=== PATIENT | female | born 1990 | race Caucasian/White ===

== ENCOUNTER 2017-06-02 16:08 | Observation (INO) ==
[2017-06-02] MEDS ORDERED: CEFTRIAXONE 1 G in NS 100 ML IV SCH (16:15)
[2017-06-02] MEDS ORDERED: ONDANSETRON 4 MG/2 ML INJECTION IVP PRN (16:25)
[2017-06-02] MEDS ORDERED: LR 1,000 ML IV SCH (16:45)
[2017-06-02 16:54] VITALS: BMI 28.9
[2017-06-02] MEDS: LR 1,000 ML IV SCH ×2 (18:54→23:52)
[2017-06-02] MEDS ORDERED: ACETAMINOPHEN 325 MG TABLET PO PRN (18:55)
[2017-06-03] MEDS ORDERED: SALINE FLUSH 10ml SYRINGE IV PRN (05:30)
[2017-06-03] MEDS: LR 1,000 ML IV SCH ×2 (06:07→12:03)
[2017-06-03 07:31] VITALS: BP 110/66; PULSE 103; RESP 16; TEMP 99.1; O2SAT 98
[2017-06-03] MEDS ORDERED: POLYETHYL GLYCOL 3350 17gm PACKET PO SCH (09:00)
--- NOTE | 2017-06-03 13:40 | Discharge Summary ---
Discharge Information Date of admission: 06/02/17 16:25 Anticipated date of discharge: 06/03/17 Attending Physician: Orquidea Han MD Primary care physician: Orquidea Han MD - Discharge Diagnosis (1) Enteroviral vesicular pharyngitis Status: Acute Discharge Diagnosis: Pt improving. Strep culture still pending so will still plan to cover w/ amoxicillin, but likely appearance of tonsils is all related to her rhino/ enteroviral infection. Fever much improved. (2) Dehydration during Status: Resolved Discharge Diagnosis: Resolved w/ IVF bolus & aggressive IV rehydration. Pt is tolerating PO well now & plan dismissal today. (3) Tachycardia Status: Acute Discharge Diagnosis: Much improved w/ antipyretics & rehydration. Was both maternal & . (4) Ketonuria Status: Resolved (5) Nausea & vomiting Status: Resolved (6) Intrauterine , incidental Status: Acute (7) Hypokalemia due to loss of potassium Status: Acute - Procedures Procedures: None - Laboratory Labs: 06/03/17 05:50 06/03/17 05:50 - Microbiology Microbiology 06/03/17 06:27 Throat Group A Streptococcus Culture - Preliminary Culture Initiated - Results Pending 06/02/17 15:39 Urine, Voided (Cc/notcc) Urine Culture - Preliminary Culture Initiated - Results Pending History of Present Illness HPI: 06/03/17 13:48 Pt presented yesterday w/ fever up to 102.5, N/V, GUTIERREZ, weakness & severe body aches. Today she has also developed a ST & white patches on her tonsils. She is feeling much better today & would like to go home. Hospital Course This is a general summary of the patient's hospital course. For more details refer to the complete medical record. On admission pt was given Rocephin 1gm IV & 1L bolus LR followed by aggressive LR rehydration. This AM her potassium was down just slightly so oral replacement was given. She has not had vomiting since admission but did take one dose of zofran this AM. Lab otherwise as below, pos for entero/rhinovirus. Strep culture & TORCH testing still pending. Laboratory Tests 06/02/17 06/02/17 06/03/17 18:23 18:23 05:50 WBC 9.7 RBC 4.21 Hgb 11.7 L Hct 35.3 L MCV 83.8 MCH 27.8 MCHC 33.1 RDW Std Deviation 40.9 Plt Count 250 MPV 10.7 Immature Gran % (Auto) Not performed Neut % (Auto) Not performed Lymph % (Auto) Not performed [place] % (Auto) Not performed Eos % (Auto) Not performed Baso % (Auto) Not performed Neut # Not performed Lymph # Not performed [place] # Not performed Eos # Not performed Baso # Not performed Abs Immat Gran (auto) Not performed Neutrophils % (Manual) 68.0 H Band Neutrophils % 15.0 H Lymphocytes % (Manual) 8.0 L Monocytes % (Manual) 7.0 Metamyelocytes % 2.0 H Neutrophils # (Manual) 6.6 Band Neutrophils # 1.5 Lymphocytes # (Manual) 0.8 L Monocytes # (Manual) 0.7 Metamyelocytes # 0.2 RBC Morph Comment Normal Turbidity < 20 Sodium 137 Potassium 3.5 L Chloride 106 Carbon Dioxide 17 L Anion Gap 14 BUN 5.0 L Creatinine 0.5 L GFR Calculation 149 BUN/Creatinine Ratio 10 Glucose 83 Calculated Osmolality 260 L Calcium 9.3 Total Bilirubin 0.60 Icterus Index < 2 AST 13 L ALT 26 Alkaline Phosphatase 75 Total Protein 7.0 Albumin 3.9 Globulin 3.1 Albumin/Globulin Ratio 1.3 Specimen Hemolysis < 15 Ur Collection Type Urine, clean catch Urine Color Yellow Urine Clarity Clear Urine pH 6.0 Ur Specific [place] <=1.005 L Urine Protein Negative Urine Glucose (UA) Negative Urine Ketones 2+ A Urine Occult Blood 1+ A Urine Nitrate Negative Urine Bilirubin Negative Urine Urobilinogen 0.2 Ur Leukocyte Esterase Negative Urine RBC None seen Urine WBC None seen Ur Squamous Epith Cells 0-5 Urine Bacteria None seen Ur Culture Indicated? Cult not indicated Urinalysis Comment Adenovirus (PCR) B.parapertussis DNA PCR C. pneumoniae DNA (PCR) Coronavirus OC43 (PCR) Coronavirus HKU1 (PCR) Coronavirus 229E (PCR) Coronavirus NL63 (PCR) Human Metapneumovirus Influenza Type A (PCR) Influenza Type B (PCR) M. pneumoniae (PCR) Parainfluenza 1 (PCR) Parainfluenza 2 (PCR) Parainfluenza 3 (PCR) Parainfluenza 4 (PCR) RSV (PCR) Entero/Rhino (PCR) Group A Strep Screen 06/03/17 06/03/17 06/03/17 05:50 05:50 06:27 WBC 9.8 RBC 3.96 L Hgb 11.0 L Hct 33.2 L MCV 83.8 MCH 27.8 MCHC 33.1 RDW Std Deviation 41.5 Plt Count 241 MPV 10.6 Immature Gran % (Auto) 0.6 H Neut % (Auto) 78.3 H Lymph % (Auto) 10.8 L [place] % (Auto) 10.1 H Eos % (Auto) 0.0 Baso % (Auto) 0.2 Neut # 7.6 Lymph # 1.1 [place] # 1.0 H Eos # 0.0 Baso # 0.0 Abs Immat Gran (auto) 0.06 H Neutrophils % (Manual) Band Neutrophils % Lymphocytes % (Manual) Monocytes % (Manual) Metamyelocytes % Neutrophils # (Manual) Band Neutrophils # Lymphocytes # (Manual) Monocytes # (Manual) Metamyelocytes # RBC Morph Comment Turbidity < 20 Sodium 137 Potassium 3.4 L Chloride 107 Carbon Dioxide 20 L Anion Gap 10 BUN 3.0 L Creatinine 0.4 L GFR Calculation 193 BUN/Creatinine Ratio 8 Glucose 98 Calculated Osmolality 261 Calcium 8.9 Total Bilirubin Icterus Index < 2 AST ALT Alkaline Phosphatase Total Protein Albumin Globulin Albumin/Globulin Ratio Specimen Hemolysis < 15 Ur Collection Type Urine Color Urine Clarity Urine pH Ur Specific [place] Urine Protein Urine Glucose (UA) Urine Ketones Urine Occult Blood Urine Nitrate Urine Bilirubin Urine Urobilinogen Ur Leukocyte Esterase Urine RBC Urine WBC Ur Squamous Epith Cells Urine Bacteria Ur Culture Indicated? Urinalysis Comment Adenovirus (PCR) B.parapertussis DNA PCR C. pneumoniae DNA (PCR) Coronavirus OC43 (PCR) Coronavirus HKU1 (PCR) Coronavirus 229E (PCR) Coronavirus NL63 (PCR) Human Metapneumovirus Influenza Type A (PCR) Influenza Type B (PCR) M. pneumoniae (PCR) Parainfluenza 1 (PCR) Parainfluenza 2 (PCR) Parainfluenza 3 (PCR) Parainfluenza 4 (PCR) RSV (PCR) Entero/Rhino (PCR) Group A Strep Screen Negative 06/03/17 06/03/17 09:14 11:40 WBC RBC Hgb Hct MCV MCH MCHC RDW Std Deviation Plt Count MPV Immature Gran % (Auto) Neut % (Auto) Lymph % (Auto) [place] % (Auto) Eos % (Auto) Baso % (Auto) Neut # Lymph # [place] # Eos # Baso # Abs Immat Gran (auto) Neutrophils % (Manual) Band Neutrophils % Lymphocytes % (Manual) Monocytes % (Manual) Metamyelocytes % Neutrophils # (Manual) Band Neutrophils # Lymphocytes # (Manual) Monocytes # (Manual) Metamyelocytes # RBC Morph Comment Turbidity Sodium Potassium Chloride Carbon Dioxide Anion Gap BUN Creatinine GFR Calculation BUN/Creatinine Ratio Glucose Calculated Osmolality Calcium Total Bilirubin Icterus Index AST ALT Alkaline Phosphatase Total Protein Albumin Globulin Albumin/Globulin Ratio Specimen Hemolysis Ur Collection Type Urine, clean catch Urine Color Yellow Urine Clarity Clear Urine pH 7.5 Ur Specific [place] 1.010 L Urine Protein Negative Urine Glucose (UA) Trace A Urine Ketones Negative Urine Occult Blood Trace-intact Urine Nitrate Negative Urine Bilirubin Negative Urine Urobilinogen 0.2 Ur Leukocyte Esterase Negative Urine RBC Urine WBC Ur Squamous Epith Cells Urine Bacteria Ur Culture Indicated? Urinalysis Comment Microscopic not ind. Adenovirus (PCR) Negative B.parapertussis DNA PCR Negative C. pneumoniae DNA (PCR) Negative Coronavirus OC43 (PCR) Negative Coronavirus HKU1 (PCR) Negative Coronavirus 229E (PCR) Negative Coronavirus NL63 (PCR) Negative Human Metapneumovirus Negative Influenza Type A (PCR) Negative Influenza Type B (PCR) Negative M. pneumoniae (PCR) Negative Parainfluenza 1 (PCR) Negative Parainfluenza 2 (PCR) Negative Parainfluenza 3 (PCR) Negative Parainfluenza 4 (PCR) Negative RSV (PCR) Negative Entero/Rhino (PCR) Detected A Group A Strep Screen Pt is currently stable at the time of discharge & much improved from admission yesterday. Will plan to continue her on home abx in form of amox to cover for strep until culture negative & rx for zofran prn. Pt to f/u in office next week at 4:30 for OB check & hosp f/u. Time spent with patient: discharge greater than 30 minutes Discharge Plan - Med Rec/Dispo Referrals/Follow Up: Orquidea Han MD [Family Provider] - Zane Instructions: Nausea and Vomiting in (GEN), Hand, Foot, and Mouth Disease (DC) Additional Instructions: If you should have any questions or problems related to the please contact Dr. Han. Prescriptions: New Acetaminophen [Tylenol] 325 - 650 mg PO Q5H PRN tablet PRN Reason: Discomfort Amoxicillin 1 cap PO Q8H 7 Days #21 cap Ondansetron HCl [Zofran] 4 mg PO Q6HPRN #30 tab Continue Pnv95/Ferrous Fumarate/FA [ Tablet] 1 tab PO DAILY #0 tab Discontinued Hydrocodone/Acetaminophen ([place] 5-325 Tablet) 1 - 2 tab PO Q4H PRN #30 tab PRN Reason: PAIN Ibuprofen 800 mg PO Q8HMC 14 Days #42 tab Iron Polysaccharide Complex [Ferrex 150] 150 mg PO BID 30 Days #60 cap Discharge Instructions/Outpatient Orders: Final Provider Discharge Instructions Location: Determined By Patient - Disposition 01 Discharged Home, Self-Care
== END 2017-06-03 15:30 | disposition home or self-care (01) ==
LOC: MED
PROVIDERS: ADMIT Family Medicine; ATTEND Family Medicine

== ENCOUNTER 2017-11-22 10:23 | Inpatient (IN) ==
[2017-11-22] MEDS ORDERED: CEFAZOLIN PREMIX (MC ONLY) 2 GM/50 ML BAG IV ONE (10:36)
[2017-11-22] MEDS ORDERED: CITRIC ACID/SODIUM CITRATE 30ml PO ONE (10:36)
[2017-11-22] MEDS ORDERED: FAMOTIDINE PB 20 MG/50 ML BAG IV ONE (10:36)
[2017-11-22] MEDS: LR 1,000 ML IV SCH ×2 (11:13→11:45)
[2017-11-22 11:23] VITALS: BMI 31.9
--- NOTE | 2017-11-22 12:04 | Anesthesia Preoperative Report ---
Anesthesia Epidural/Spinal Rec - Date and Time Date: 11/22/17 Procedure: Plan: Spinal - Vital Signs Vital Signs: Temperature 98.5 F 11/22/17 11:04 Pulse Rate 78 11/22/17 11:04 Respiratory Rate 16 11/22/17 11:04 Blood Pressure 107/67 11/22/17 11:04 Pulse Oximetry 98 11/22/17 11:04 /Para: P:1 - Medictaions & Allergies Inpatient Medications: Current Medications Lactated Ringer's (Lactated Ringers) 1,000 mls @ 999 mls/hr IV .Q1H1M ELLIOTT Last Admin: 11/22/17 11:45 Dose: 999 mls/hr Allergies/Adverse Reactions: Allergies Allergy/AdvReac Type Severity Reaction Status Date / Time No Known Allergies Allergy Verified 11/22/17 11:29 - Home Medications Home Medications: Home Medications Medication Instructions Recorded Confirmed Type Pnv95/Ferrous Fumarate/FA 1 tab PO DAILY #0 tab 01/29/16 11/22/17 History [ Tablet] - Medical History Respiratory: DENIES: Asthma, Bronchitis, Chronic Obstructive Pulmonary Disease (COPD), Dyspnea, Orthopnea, Pulmonary Embolism, Pneumonia, Upper Respiratory Infection, Pulmonary Edema, Sleep Apnea, Tuberculosis, Other Cardiovascular: DENIES: Abnormal EKG, Angina, Arrhythmia, Congestive Heart Failure, Coronary Artery Disease, Heart Murmur, Hypertension, Hypotension, High Cholesterol, Myocardial Infarction, Rheumatic Fever, Valvular Heart Disease, Other Gastrointestional: Reports: Ulcer (hx of) DENIES: Obstructive Bowel, Hepatitis, Cirrhosis, Nausea or Vomiting Present, Gastroesophageal Reflux Disease, Gastrointestinal Bleeding, Hiatal Hernia, Morbid Obesity, Other Neuro/Musculoskeletal: Denies: HX.MS.OSAR, Back Problems, Cerebrovascular Accident, Depression, Headaches, Loss of Consciousness, Muscle Weakness, Neuromuscular Disorder, Paralysis, Paresthesia, Syncope, Seizures, Other Renal/Endocrine: DENIES: Diabetes Mellitus Type 1, Diabetes Mellitus Type 2, Renal Failure, Dialysis, Thyroid Disease, Weight Loss, Weight Gain, Other Other History: Reports: Now DENIES: Anesthesia Reactions, Blood Transfusions, Chemotherapy, Cancer, Hemophilia, Malignant Hyperthermia, Sickle Cell Disease, Other - Surgical History Reproductive Surgery/Treatment: Reports: Section Anesthesia Reactions: None Hx Family Anesthesia Reaction: No History of Motion Sickness: No - Social History Smoking Status: Never smoker Second Hand Exposure: No Substance Use Type: does not use Alcohol Intake Frequency: does not drink Hx Chewing Tobacco Use: No - Pertinent Findings Lab Data: CBC and BMP 11/22/17 10:56 - Physical Exam Respiratory Exam: lungs clear, bilateral breath sounds equal Cardiovascular Exam: regular rate and rhythm, no murmur - Airway Assessment Mallampati Score: I TMD: 3 Fingerbreadths Neck Extension: good Overall Assessment: no airway concerns - ASA ASA Score: 2 - Discussion Discussion: Discussed risks/options/alternatives of anesthesia and questions answered. Patient consents. Nursing pain assessment noted. Anesthesia Discussion: spouse, family member Attestation Statement: Prior to the delivery of any anesthetic medication, I examined the patient, developed the plan, obtained the patient's consent and discussed the risk and benefits of the procedure with the patient/guardian.
[2017-11-22] MEDS ORDERED: MORPHINE SULFATE PF 5mg/10ml INJ (Duramorph) ONE (12:15)
[2017-11-22] MEDS ORDERED: FentaNYL 100 MCG/2 ML INJECTION ONE (12:15)
[2017-11-22] MEDS ORDERED: ONDANSETRON 4 MG/2 ML INJECTION ONE (12:16)
[2017-11-22] MEDS ORDERED: EPHEDRINE 50mg/ml INJECTION ONE (12:29)
[2017-11-22] MEDS ORDERED: OXYTOCIN BOLUS BAG 30 UNIT/500 ML ML IV SCH (13:00)
[2017-11-22] MEDS ORDERED: ONDANSETRON 4 MG/2 ML INJECTION IVP PRN (13:21)
[2017-11-22] MEDS ORDERED: NALOXONE 2 MG/2 ML INJECTION PFS IVP PRN (13:21)
[2017-11-22] MEDS ORDERED: NALBUPHINE 10 MG/ML INJECTION IVP PRN (13:21)
--- NOTE | 2017-11-22 13:52 | Operative Note ---
Operative Note - Date of Operation Date of Operation: 11/22/17 - General Estimated or Known Gestational Age (weeks): 39 Estimated or Known Gestational Age (days): 2 - Preoperative Diagnosis Previous Section - Postoperative Diagnosis previous section - Procedure Repeat, Low-transverse - Surgeon Surgeon: Orquidea Han MD - Medical Library Assistant OB Medical Library Assistant: Rick Soto MD - Anesthesia Anesthesia Provider: Gigi Fink CRNA Anesthesia Type: Spinal - Estimated Blood Loss Estimated Blood Loss:: 700 - Findings Findings: viable male, clear fluids, normal adenexa, uterine fibroids, OT Comments: nuchal cord x1 reduced - APGARS : 8/9 - [place] Weight Weight (grams): 3604 - Name Name: Misael Borjas - Indications Indications: Previous LTCS - Description of Procedure Description of Procedure: See dictation.
[2017-11-22] MEDS ORDERED: ACETAMINOPHEN 500 MG TABLET PO PRN (13:55)
[2017-11-22] MEDS ORDERED: DiphenhydrAMINE 25 MG CAPSULE PO PRN (13:55)
[2017-11-22] MEDS ORDERED: HYDROCORTISONE 2.5% CREAM 30gm RECTALLY PRN (13:55)
[2017-11-22] MEDS ORDERED: CALCIUM CARBONATE Chewable 500mg TABLET PO PRN (13:55)
[2017-11-22] MEDS ORDERED: SALINE FLUSH 10ml SYRINGE IV PRN (13:55)
[2017-11-22] MEDS ORDERED: OXYTOCIN DRIP 30 UNIT/500 ML ML IV SCH (14:00)
[2017-11-22] MEDS ORDERED: D5LR 1,000 ML IV SCH (14:00)
[2017-11-22] MEDS: IBUPROFEN 800 MG TABLET PO SCH ×3 (14:38→22:51)
[2017-11-22] MEDS: HYDROCODONE/APAP 5mg/325mg TABLET PO PRN ×2 (14:39→20:03)
--- NOTE | 2017-11-22 15:34 | Anesthesia Postoperative Note ---
- Date and Time Date: 11/22/17 Time: 15:33 - Status Patient Participated in Evaluation: Patient Participated in Person Vital Signs: Temperature 98.5 F 11/22/17 11:04 Pulse Rate 78 11/22/17 11:04 Respiratory Rate 16 11/22/17 11:04 Blood Pressure 107/67 11/22/17 11:04 Pulse Oximetry 98 11/22/17 11:04 Respiratory Function: Airway Patent, Regular Respirations Mental Status: Alert and Oriented Pain Intensity: 2 Hydration: Taking PO Fluids, IV Infusing Complications During Recover: None Apparent - Follow-Up Instructions Instructions: Per Surgeon
[2017-11-22] MEDS: SIMETHICONE 80 MG CHEWABLE TABLET PO SCH ×2 (20:03→22:52)
--- NOTE | 2017-11-22 20:59 | Operative Note ---
DATE OF SURGERY 11/22/2017 PREOPERATIVE DIAGNOSES 1. 39 week 2 day estimated gestational age intrauterine . 2. Previous low transverse section. POSTOPERATIVE DIAGNOSES 1. 39 week 2 day estimated gestational age intrauterine -delivered. 2. Previous low transverse section. SURGEON Orquidea Han MD H[employer] SUPERVISOR Rick Soto, DO ANESTHESIA Spinal. COMPLICATIONS None. EBL 700 mL. IV FLUIDS 1000 mL LR with 20 units Pitocin. URINE OUTPUT 250 mL of clear urine at end of procedure. INDICATIONS 27-year-old G2, P1 at 39 weeks 2 days estimated gestational age here for scheduled repeat section. FINDINGS Male infant in cephalic presentation with loose nuchal cord x 1 - reduced. Apgars 8/9/9. Weight 3604 g (7 pounds 15.1 oz). Normal tubes and ovaries. Uterus normal with the exception of two anterior fibroids noted. NARRATIVE OF PROCEDURE After verbal and written informed consent was given the patient was taken to the operating room where spinal anesthesia was placed and found to be adequate. She was then prepped and draped in the usual fashion in the dorsal supine position with left lateral tilt. A Pfannenstiel skin incision was then made with scalpel and carried through to the underlying layer of fascia. The fascia was then incised in the midline and the incision was extended laterally using Pringle scissors. The superior aspect of the fascial incision was then grasped with Piyush clamps x 2, elevated and the underlying rectus muscles were dissected off bluntly and sharply. Attention was turned to the inferior aspect of this incision which in a similar fashion was grasped, tented up with Piyush clamps x 2, and the rectus muscles were dissected off bluntly and sharply. The rectus muscles were then in the midline and the peritoneum was identified, tent up and entered bluntly and sharply with Metzenbaum scissors in a superior direction. Manual traction was then used to extend the peritoneal incision the rest of the way with good visualization of the bladder. A bladder blade was then inserted and the vesicouterine peritoneum was identified, grasped with Haitian pickups and entered sharply with Metzenbaum scissors. The incision was extended laterally and a bladder flap was created digitally. The bladder blade was reinserted and the lower uterine segment was incised in a transverse fashion with a scalpel. The uterine incision was extended laterally using manual traction. The bladder blade was removed and the infant's head was delivered atraumatically. A nuchal cord x 1 was noted and reduced. The shoulders were then also delivered atraumatically and the cord was doubly clamped and cut. The was taken to the warmer for further stimulation and resuscitation by nursing staff and respiratory therapy. The uterus was then exteriorized and the placenta was removed by uterine massage. The uterus was then cleared of all clots and debris. The uterine incision was repaired using 0-Monocryl in a running locking fashion. Excellent hemostasis was achieved and the uterus was returned to the abdomen. The gutters were cleared of all clots and debris. The peritoneum was closed using 2-0 Vicryl. Fascia was then reapproximated using 0-Vicryl in a running fashion. Shlomo's fascia was then closed using 3-0 plain gut. The skin was closed using wide elizabeth. The patient tolerated the procedure well. Sponge, lap and needle counts were correct x 2. Ancef 2 g were given prior to the procedure. The patient and the infant are currently in the recovery room in stable condition. DEA
[2017-11-23] MEDS: HYDROCODONE/APAP 5mg/325mg TABLET PO PRN ×4 (01:14→17:53)
[2017-11-23] MEDS: IBUPROFEN 800 MG TABLET PO SCH ×2 (08:15→16:00)
[2017-11-23] MEDS: DOCUSATE CALCIUM 240 MG CAPSULE PO SCH (08:16)
[2017-11-23] MEDS: SIMETHICONE 80 MG CHEWABLE TABLET PO SCH ×2 (08:55→20:00)
[2017-11-23] MEDS: SIMETHICONE 80 MG CHEWABLE TABLET PO PRN (14:45)
[2017-11-24] MEDS: IBUPROFEN 800 MG TABLET PO SCH ×2 (00:09→09:25)
[2017-11-24] MEDS: HYDROCODONE/APAP 5mg/325mg TABLET PO PRN ×4 (00:09→13:36)
[2017-11-24] MEDS: SIMETHICONE 80 MG CHEWABLE TABLET PO SCH ×3 (00:09→09:25)
[2017-11-24 04:26] VITALS: RESP 16; O2SAT 100
[2017-11-24] MEDS: DOCUSATE CALCIUM 240 MG CAPSULE PO SCH (09:26)
[2017-11-24 13:06] VITALS: BP 113/69; PULSE 86; TEMP 98.8
[2017-11-24] MEDS: SIMETHICONE 80 MG CHEWABLE TABLET PO PRN (13:36)
--- NOTE | 2017-11-24 13:46 | OB/GYN Progress Note ---
OB-Progress Note Free Text - Date Date: 11/23/17 - Progress Note Progress Note: S: Pt doing well. Tyesha PO/Amb/void. Minimal Lochia. Pain controlled. O: AF/VSS FF, below umbilicus Inc C/D/I A/P: POD #1 s/p RLTCS - scheduled. Doing well. Continue care. Plan d/c tomorrow if still doing well w/ elizabeth out in office on 11/25/17.
--- NOTE | 2017-11-24 13:50 | Discharge Summary ---
OB Discharge Summary Reason for Hospitalization:: TIUP, prior LTCS Date: 11/24/17 Procedures: Procedures Drainage of Amniotic Fluid, Therapeutic from Products of Conception, Via Natural or Artificial Opening (02/18/16) Extraction of Products of Conception, Low Cervical, Open Approach (02/18/16) Introduction of Other Hormone into Peripheral Vein, Percutaneous Approach (02/17) Delivery: Repeat - Final Diagnosis : 2 Para: 1 (1) Qualifiers: Weeks of gestation: 39 weeks Qualified Code(s): Z3A.39 - 39 weeks gestation of Status: Acute Weeks: 39 Days: 2 Sex and Viability: viable female Comment: Name: Misael Borjas Weight: 3.604 kg Consultations: 11/22/17 10:36 Consult to Anesthesiology [CONS] Routine Reason For Exam: Anesthesia 11/22/17 13:55 Nurse Consult [CONS] Routine Comment: Instructions: Discharge Instructions: Maternal Child Mother Dismissal Instructions Given (diet, activity, and medications, follow-up) Home Medications: Home Medications Medication Instructions Recorded Confirmed Type Pnv95/Ferrous Fumarate/FA 1 tab PO DAILY #0 tab 01/29/16 11/22/17 History [ Tablet] Hydrocodone/APAP 5/325 [[place] 1 - 2 tab PO Q4H PRN #60 tab 11/24/17 Rx 5/325] Ibuprofen [Motrin] 800 mg PO Q8HMC PRN #60 tab 11/24/17 Rx Discharge Plan - Discharge Disposition *Condition: Stable Reason For Visit (Visit label in EMR): C section - Discharge Medications *Discharge Medications: New Hydrocodone/APAP 5/325 [[place] 5/325] 1 - 2 tab PO Q4H PRN #60 tab PRN Reason: Pain Ibuprofen [Motrin] 800 mg PO Q8HMC PRN #60 tab PRN Reason: Pain Continue Pnv95/Ferrous Fumarate/FA [ Tablet] 1 tab PO DAILY #0 tab - Discharge Packet/Instructions *Notify Physician if: See Maternal Child discharge instructions. *During Business Hours Contact: Dr. Han @ [facility] [phone]. *After Business Hours Contact: Dr. Han or consumer educator physician through hospital die cut operator [phone] [phone]. *Pending Lab/Results: No Pending Lab - Referrals/Follow Up *Referrals/Follow Up: Orquidea Han MD [Family Provider] - - Patient Handouts Patient Handouts: [facility] Delivery - Dismissal Complete Discharge Instructions are:: Complete
== END 2017-11-24 15:00 | disposition home or self-care (01) | DRG 766 ==
LOC: MC 10:23
PROVIDERS: ADMIT Family Medicine; ATTEND Family Medicine